=== PATIENT | male | born 1985 | race African-American/Black ===

== ENCOUNTER 2017-02-15 21:31 | Emergency (ER) | payer MEDICAID ==
[2017-02-15 21:33] VITALS: BP 142/81; PULSE 97; RESP 16; TEMP 97.5; O2SAT 98
--- NOTE | 2017-02-15 22:15 | PD ---
HPI Chief Complaint: Medical Clearance Time Seen by Provider: 22:11 Travel History International Travel<30 days: No Contact w/Intl Traveler<30days: No Traveled to known affect area: No History of Present Illness HPI 32-year-old black male presents to emergency department for medical clearance to go to detox. The patient was over at [facility] and he was too intoxicated to assist with his evaluation. He was brought here to the ER for medical clearance. [facility] states that they will hold his bed until he is medically cleared for his detox. The patient here is very intoxicated. He states that he had snorted 2-30 milligram oxycodone earlier this evening. The patient also states that he smokes marijuana. Patient admits to polysubstance abuse. He denies any IV drug use. He does donate plasma. He denies any medical complaints. No suicidal or homicidal ideation. [facility] Past Medical History Narrative Medical Substance abuse Tetanus Vaccination: Unknown Past Surgical History Surgical History: Unable to Obtain Social History Alcohol Use: Yes Tobacco Use: Yes Substance Use: Yes Allergies-Medications (Allergen,Severity, Reaction): Coded Allergies: No Known Allergies (Unverified , 02/15/17) Reported Meds & Prescriptions Reported Meds & Active Scripts Active Active Prescriptions or Reported Medications Unobtainable Review of Systems ROS Limitations: Intoxication Physical Exam Narrative GENERAL: Well-nourished, well-developed patient. Patient appears intoxicated. He is somnolent but arousable but falls back to sleep readily. SKIN: Warm and dry. HEAD: Normocephalic and atraumatic. EYES: No scleral icterus. No injection or drainage. ENT: No nasal drainage noted. Mucous membranes pink. Airway patent. Patient is handling his secretions. Positive gag. NECK: Supple, trachea midline. Moves head freely without obvious discomfort. CARDIOVASCULAR: Regular rate and rhythm without murmurs, gallops, or rubs. RESPIRATORY: Breath sounds equal bilaterally. No accessory muscle use. GASTROINTESTINAL: Abdomen soft, non-tender, nondistended. EXTREMITIES: No cyanosis or edema. BACK: Nontender without obvious deformity. No CVA tenderness. NEURO: Patient is alert and oriented. no sensorimotor deficits. Nonfocal. Slurred speech. Ataxic due to intoxication. PSYCH: No delusions. No auditory or visual hallucinations. Data Data Last Documented VS Vital Signs Date Time Temp Pulse Resp B/P Pulse Ox O2 Delivery O2 Flow Rate FiO2 02/15/17 21:33 97.5 97 16 142/81 98 Room Air Orders Complete Blood Count With Diff (02/15/17 22:05) Comprehensive Metabolic Panel (02/15/17 22:05) Iv Access Insert/Monitor (02/15/17 22:05) Ecg Monitoring (02/15/17 22:05) Drug Screen, Random Urine (02/15/17 22:05) Alcohol (Ethanol) (02/15/17 22:05) Sodium Chlor 0.9% 1000 Ml Inj (Ns 1000 M (02/16/17 00:45) Labs Laboratory Tests Test 02/15/17 22:42 White Blood Count 4.8 TH/MM3 Red Blood Count 4.23 MIL/MM3 Hemoglobin 12.9 GM/DL Hematocrit 37.2 % Mean Corpuscular Volume 87.9 FL Mean Corpuscular Hemoglobin 30.5 PG Mean Corpuscular Hemoglobin 34.7 % Concent Red Cell Distribution Width 13.2 % Platelet Count 307 TH/MM3 Mean Platelet Volume 8.3 FL Neutrophils (%) (Auto) 42.4 % Lymphocytes (%) (Auto) 42.6 % Monocytes (%) (Auto) 7.0 % Eosinophils (%) (Auto) 6.9 % Basophils (%) (Auto) 1.1 % Neutrophils # (Auto) 2.0 TH/MM3 Lymphocytes # (Auto) 2.0 TH/MM3 Monocytes # (Auto) 0.3 TH/MM3 Eosinophils # (Auto) 0.3 TH/MM3 Basophils # (Auto) 0.1 TH/MM3 CBC Comment DIFF FINAL Differential Comment Sodium Level 140 MEQ/L Potassium Level 4.2 MEQ/L Chloride Level 103 MEQ/L Carbon Dioxide Level 28.4 MEQ/L Anion Gap 9 MEQ/L Blood Urea Nitrogen 11 MG/DL Creatinine 1.17 MG/DL Estimat Glomerular Filtration 71 ML/MIN Rate Random Glucose 102 MG/DL Calcium Level 8.4 MG/DL Total Bilirubin 0.2 MG/DL Aspartate Amino Transf 24 U/L (AST/SGOT) Alanine Aminotransferase 30 U/L (ALT/SGPT) Alkaline Phosphatase 82 U/L Total Protein 6.6 GM/DL Albumin 3.4 GM/DL Ethyl Alcohol Level LESS THAN 3 MG/DL MDM Medical Decision Making Medical Screen Exam Complete: Yes Emergency Medical Condition: Yes Medical Record Reviewed: Yes Interpretation(s) CBC & BMP Diagram 02/15/17 22:42 EtOH: Negative Differential Diagnosis Differential diagnoses: Alcohol intoxication, substance abuse, electrolyte abnormality, malingering Narrative Course IV access is obtained. Patient given a liter bolus of normal saline. Routine laboratory tests sent for analysis including CBC, chemistry, EtOH and drug screen. The patient will be medically cleared here in the ER then discharged back to [facility] for detox. This is polysubstance abuse Diagnosis Primary Impression: Polysubstance abuse Patient Instructions: General Instructions Additional Instructions: Rest. Follow-up with Jonas Lui. Med/Other Pt SpecificInfo: No Meds Exist/No RX given Scripts Unable to Obtain Active Prescriptions or Reported Meds Disposition: 65 DISC TO PSYCH CARE FACILITY Condition: Stable Jeison Boyd Feb 15, 2017 22:15
[2017-02-15 22:59] LABS: BASOPHIL # 0.1 TH/MM3 (0-0.2); BASOPHIL % 1.1 % (0.0-2.0); EOSINOPHIL # 0.3 TH/MM3 (0-0.4); EOSINOPHIL % 6.9 % (0.0-4.0); HEMATOCRIT 37.2 % (39.0-51.0); HEMO FLAGS DIFF FINAL; LYMPH % 42.6 % (9.0-44.0); MEAN CELL VOLUME 87.9 FL (80.0-100.0); MEAN CORPUSCULAR HEMOGLOBIN 30.5 PG (27.0-34.0); MEAN CORPUSCULAR HGB CONC 34.7 % (32.0-36.0); NEUT % 42.4 % (16.0-70.0); PLATELET COUNT 307 TH/MM3 (150-450); RED BLOOD COUNT 4.23 MIL/MM3 (4.50-5.90); RED CELL DISTRIBUTION WIDTH 13.2 % (11.6-17.2); WHITE BLOOD COUNT 4.8 TH/MM3 (4.0-11.0)
[2017-02-15 23:16] LABS: ALKALINE PHOSPHATASE 82 U/L (45-117); ALT (GPT) 30 U/L (12-78); TOTAL BILIRUBIN ADULT 0.2 MG/DL (0.2-1.0)
[2017-02-15 23:19] LABS: ANION GAP 9 MEQ/L (5-15); AST (GOT) 24 U/L (15-37); BICARBONATE 28.4 MEQ/L (21.0-32.0); BLOOD UREA NITROGEN 11 MG/DL (7-18); CHLORIDE 103 MEQ/L (98-107); GLOMERULAR FILTRATION RATE 71 ML/MIN (>89); SODIUM (NA) 140 MEQ/L (136-145)
[2017-02-15 23:24] LABS: POTASSIUM 4.2 MEQ/L (3.5-5.1)
[2017-02-16] MEDS ORDERED: SODIUM CHLOR 0.9% 1000 ML INJ 1,000 ML IV ONE (00:45)
[2017-02-16 01:51] LABS: AMPHETAMINE, URINE NEG (NEG); BARBITURATES, URINE NEG (NEG); COCAINE, URINE NEG (NEG)
== END 2017-02-16 03:01 ==
LOC: NEPB 21:31
DX: F13.10 Sedative, hypnotic or anxiolytic abuse, uncomplicated (principal); R47.81 Slurred speech; R27.0 Ataxia, unspecified; Z72.0 Tobacco use
CPT/HCPCS: 80053; 80307; 85025; 99283